=== PATIENT | female | born 1935 | race Two or more races ===

== ENCOUNTER → 2017-10-29 | Outpatient (CLI) | payer MEDICARE ==
[~2017-10-29] MED LIST: IBUP200C3 OR; IBUP600T39; PHENELX16; VALS160T53; VALS80TA42 OR
[2017-10-29 10:48] LABS: Basophils # (auto) 0.1 uL; Basophils % (auto) 0.8 % (0.0-2.0); Eosinophils # (auto) 0.2 uL; Eosinophils % (auto) 3.2 % (0.0-7.0); Hematocrit 40.2 % (36.0-46.0); Hemoglobin 13.6 g/dL (12.2-16.2); Lymphocytes # (auto) 2.6 uL; Lymphocytes % (auto) 39.1 % (10.0-50.0); Mean Corpuscular Hemoglobin 32.6 pg (28.0-32.0); Mean Corpuscular Hgb Conc. 33.8 g/dL (32.0-36.0); Mean Corpuscular Volume 96.6 fL (80.0-100.0); Monocytes # (auto) 0.7 uL; Monocytes % (auto) 10.8 % (0.0-12.0); Neutrophils # (auto) 3.1 uL; Neutrophils % (auto) 46.1 % (37.0-80.0); Platelet Count (auto) 226 10^3/uL (140-450); Red Blood Cells 4.16 10^6/uL (4.0-5.20); Red Cell Distribution Width 14.1 % (11.8-14.3); White Blood Cell 6.7 10^3/uL (4.4-10.8)
[2017-10-29 11:41] LABS: BUN/Creatinine Ratio 20.7; Bilirubin, Total 0.6 mg/dL (0.2-1.0); Calcium 8.7 mg/dL (8.5-10.1); Magnesium 2.2 mg/dL (1.6-2.6); Potassium 3.8 mmol/L (3.5-5.1); Total Protein 7.8 g/dL (6.4-8.2)
== END | disposition home or self-care (01) ==
LOC: LAB 10:33
DX: E11.9 Type 2 diabetes mellitus without complications (principal); E75.6 Lipid storage disorder, unspecified; E66.9 Obesity, unspecified; E55.9 Vitamin D deficiency, unspecified; I10 Essential (primary) hypertension
CPT/HCPCS: 36415; 80053; 80061; 82306; 82607; 82746; 83036; 83735; 85025

== ENCOUNTER 2023-05-14 10:53 | Emergency (ER) | payer OTHER, MEDICAID ==
[~2023-05-14] VITALS: Ht 142.2 cm; Wt 45.5 kg
[~2023-05-14 10:53] MED LIST changes: +VALS80TA4 OR; -VALS80TA42 OR
[2023-05-14 11:46] LABS: Basophils # (auto) 0.1 10 ^3/uL (0-0.2); Basophils % (auto) 0.8 % (0.0-2.0); Eosinophils # (auto) 0 10 ^3/uL (0-0.8); Eosinophils % (auto) 0.4 % (0.0-7.0); Lymphocytes % (auto) 21.7 % (10.0-50.0); Mean Corpuscular Hemoglobin 33.1 pg (28.0-32.0); Mean Corpuscular Hgb Conc. 34.2 g/dL (32.0-36.0); Mean Corpuscular Volume 96.7 fL (80.0-100.0); Monocytes # (auto) 0.9 10 ^3/uL (0-1.3); Monocytes % (auto) 10.2 % (0.0-12.0); Neutrophils # (auto) 6.1 10 ^3/uL (1.6-8.6); Neutrophils % (auto) 66.9 % (37.0-80.0); Red Blood Cells 3.93 10^6/uL (4.0-5.20); Red Cell Distribution Width 14.5 % (11.8-14.3); White Blood Cell 9.1 10^3/uL (4.4-10.8)
[2023-05-14 12:04] LABS: Alanine Aminotransferase 131 U/L (7-40); Albumin 4.1 g/dL (3.2-4.8); Alkaline Phosphatase 458 U/L (46-116); Anion Gap 9 (5-15); Aspartate Aminotransferase 230 U/L (13-40); BUN/Creatinine Ratio 16.1 (10.0-20.0); Blood Urea Nitrogen 9 mg/dL (9-23); Calcium 8.9 mg/dL (8.7-10.4); Carbon Dioxide 22 mmol/L (20-30); Chloride 104 mmol/L (98-107); Glucose 120 mg/dL (74-106); Lipase 32 U/L (12-53); Potassium 4.1 mmol/L (3.5-5.1); Sodium 135 mmol/L (136-145)
[2023-05-14 12:05] LABS: Bilirubin, Total 1.3 mg/dL (0.2-1.0); Total Protein 7.2 g/dL (5.7-8.2)
[2023-05-14] MEDS ORDERED: ASPirin 325 MG TAB PO ONE (13:15)
[2023-05-14] MEDS ORDERED: IOHEXOL 350 MG/ML 100ML IJ ONE (13:15)
[2023-05-14] MEDS ORDERED: PIPERACILLIN-TAZOB 3.375GM 100 ML IV ONE (16:00)
[2023-05-14] MEDS ORDERED: SODIUM CHLORIDE 0.9% 1,000 ML IV ONE (21:30)
[2023-05-14 21:45] VITALS: BP 150/86; PULSE 74; RESP 18; TEMP 98.3; O2SAT 98
== END 2023-05-14 21:55 | disposition short-term general hospital (02) ==
LOC: EDBD 10:53 → ER 10:53
DX: R10.13 Epigastric pain (principal); R42 Dizziness and giddiness; R79.89 Other specified abnormal findings of blood chemistry; K80.50 Calculus of bile duct without cholangitis or cholecystitis without obstruction; R79.1 Abnormal coagulation profile; R55 Syncope and collapse; K80.70 Calculus of gallbladder and bile duct without cholecystitis without obstruction
CPT/HCPCS: 36415; 71045; 71275; 74176; 74181; 76705; 80053; 83605; 83690; 83735; 83880; 84484; 85025; 85379; 93005; 96365; 96366; 99291; J2543; Q9967

== ENCOUNTER 2023-09-17 15:35 | Emergency (ER) | payer OTHER, MEDICAID ==
[~2023-09-17] VITALS: Ht 142.2 cm; Wt 50.0 kg
[2023-09-17 19:46] VITALS: BP 140/71; PULSE 76; RESP 12; TEMP 98; O2SAT 98
[2023-09-17] MEDS ORDERED: IBUP-1454 PO (21:31)
[2023-09-17] MEDS ORDERED: HYDR-4902 PO (21:31)
== END 2023-09-17 21:48 | disposition home or self-care (01) ==
LOC: ER 15:35
DX: S32.591A Other specified fracture of right pubis, initial encounter for closed fracture (principal); S32.511A Fracture of superior rim of right pubis, initial encounter for closed fracture; I10 Essential (primary) hypertension; E11.9 Type 2 diabetes mellitus without complications; W18.09XA Striking against other object with subsequent fall, initial encounter; Y93.89 Activity, other specified; Y92.89 Other specified places as the place of occurrence of the external cause; Y99.8 Other external cause status
CPT/HCPCS: 72170; 72192

== ENCOUNTER 2023-12-19 15:48 | Inpatient (IN) | payer OTHER, MEDICAID ==
[~2023-12-19] VITALS: Ht 160 cm; Wt 98.6 kg
[~2023-12-19 15:48] MED LIST changes: +HYDR-4902 PO; +IBUP-1454 PO
[2023-12-19 16:25] VITALS: RESP 14; O2SAT 94
[2023-12-19] MEDS: ONDANSETRON HCL 4 MG/2 ML VIAL IV ONE (16:33)
[2023-12-19] MEDS: MORPHINE SULFATE 4 MG/ML SYR/VIAL IV ONE (16:34)
[2023-12-19 16:45] LABS: Basophils # (auto) 0 10 ^3/uL (0-0.2); Basophils % (auto) 0.5 % (0.0-2.0); Eosinophils # (auto) 0.2 10 ^3/uL (0-0.8); Eosinophils % (auto) 1.4 % (0.0-7.0); Hematocrit 37.2 % (36.0-46.0); Hemoglobin 12.5 g/dL (12.2-16.2); Lymphocytes # (auto) 1.9 10 ^3/uL (0.4-5.4); Lymphocytes % (auto) 17.8 % (10.0-50.0); Mean Corpuscular Hemoglobin 31.4 pg (28.0-32.0); Mean Corpuscular Hgb Conc. 33.7 g/dL (32.0-36.0); Mean Corpuscular Volume 93.2 fL (80.0-100.0); Monocytes # (auto) 1.1 10 ^3/uL (0-1.3); Monocytes % (auto) 10.3 % (0.0-12.0); Neutrophils # (auto) 7.5 10 ^3/uL (1.6-8.6); Platelet Count (auto) 355 10^3/uL (140-450); Red Blood Cells 3.99 10^6/uL (4.0-5.20); Red Cell Distribution Width 14.8 % (11.8-14.3); White Blood Cell 10.7 10^3/uL (4.4-10.8)
[2023-12-19 17:04] LABS: INR 1.15 (0.9-1.15); Prothrombin Time 12.1 sec (9.3-11.8)
[2023-12-19 17:05] LABS: Chloride 104 mmol/L (98-107); Potassium 3.8 mmol/L (3.5-5.1); Sodium 134 mmol/L (136-145)
[2023-12-19 17:06] LABS: Anion Gap 7 (5-15); Calcium 8.9 mg/dL (8.7-10.4); Carbon Dioxide 23 mmol/L (20-30)
[2023-12-19 17:11] LABS: BUN/Creatinine Ratio 17.7 (10.0-20.0); Blood Urea Nitrogen 11 mg/dL (9-23); Glucose 124 mg/dL (74-106)
[2023-12-19 19:30] VITALS: PULSE 80; RESP 18; O2SAT 95
[2023-12-19] MEDS ORDERED: ONDANSETRON HCL 4 MG/2 ML VIAL IV PRN (21:15)
[2023-12-19] MEDS ORDERED: DEXTROSE (50%) 50ML SYRG IV PRN (21:15)
[2023-12-19] MEDS ORDERED: ACETAMINOPHEN 325 MG TAB PO PRN (21:15)
[2023-12-19] MEDS: SODIUM CHLORIDE 0.9% 1,000 ML IV SCH (21:15)
[2023-12-19] MEDS: InsuLIN REG 1unit/0.01ml Soln (100units/ml) SC SCH (22:00)
[2023-12-19] MEDS: ACCU-CHEK COMFORT CURVE STRIP VI SCH (22:20)
[2023-12-19] MEDS ORDERED: MORPHINE SULFATE INJ 2 MG/ml SYRG IV PRN (23:00)
[2023-12-19] MEDS ORDERED: NITROGLYCERIN 0.4 MG SL TAB SL PRN (23:00)
[2023-12-20] VITALS (7 sets, daily range): BP systolic 118–131; BP diastolic 55–74; PULSE 68–85; RESP 14–20; TEMP 97.7–98.2; O2SAT 93–96
[2023-12-20] MEDS: MORPHINE SULFATE INJ 2 MG/ml SYRG IV PRN (03:15)
[2023-12-20 06:28] LABS: Basophils # (auto) 0 10 ^3/uL (0-0.2); Basophils % (auto) 0.2 % (0.0-2.0); Eosinophils # (auto) 0.1 10 ^3/uL (0-0.8); Eosinophils % (auto) 0.7 % (0.0-7.0); Hematocrit 34.5 % (36.0-46.0); Hemoglobin 11.8 g/dL (12.2-16.2); Lymphocytes # (auto) 1.4 10 ^3/uL (0.4-5.4); Mean Corpuscular Hemoglobin 31.8 pg (28.0-32.0); Mean Corpuscular Hgb Conc. 34.2 g/dL (32.0-36.0); Mean Corpuscular Volume 93.1 fL (80.0-100.0); Monocytes % (auto) 10.3 % (0.0-12.0); Neutrophils # (auto) 6.9 10 ^3/uL (1.6-8.6); Neutrophils % (auto) 73.8 % (37.0-80.0); Platelet Count (auto) 324 10^3/uL (140-450); Red Blood Cells 3.71 10^6/uL (4.0-5.20); Red Cell Distribution Width 14.8 % (11.8-14.3); White Blood Cell 9.3 10^3/uL (4.4-10.8)
[2023-12-20 07:04] LABS: Alanine Aminotransferase 11 U/L (7-40); Albumin 3.6 g/dL (3.2-4.8); Alkaline Phosphatase 259 U/L (46-116); Anion Gap 4 (5-15); Aspartate Aminotransferase 14 U/L (13-40); BUN/Creatinine Ratio 17.8 (10.0-20.0); Blood Urea Nitrogen 8 mg/dL (9-23); Calcium 8.9 mg/dL (8.7-10.4); Carbon Dioxide 27 mmol/L (20-30); Chloride 105 mmol/L (98-107); Glucose 106 mg/dL (74-106); Potassium 4.3 mmol/L (3.5-5.1); Sodium 136 mmol/L (136-145)
[2023-12-20 07:05] LABS: Bilirubin, Total 0.7 mg/dL (0.2-1.0); Total Protein 6.5 g/dL (5.7-8.2)
[2023-12-20] MEDS: cefTRIAXone 1GM/50ML D5W 50 ML IV SCH (08:52)
[2023-12-20] MEDS: ENOXAPARIN SOD 30 MG/0.3 ML SYRINGE SC SCH (08:57)
[2023-12-20 18:35] LABS: Urine Bacteria None Seen /hpf (None Seen)
[2023-12-20 19:03] LABS: Urine Blood Negative /uL (Negative); Urine Clarity Clear (Clear); Urine Color Light-Yellow (Yellow); Urine Mucus FEW (None Seen); Urine Protein, UAD Negative (Negative); Urine Specific Gravity 1.014 (1.001-1.035); Urine Urobilinogen Normal (Negative); Urine WBC 1 /hpf (0 - 5); Urine pH 6.5 (5.0-9.0)
[2023-12-21] VITALS (16 sets, daily range): BP systolic 94–129; BP diastolic 55–85; PULSE 62–96; RESP 16–20; TEMP 98–98.5; O2SAT 93–99
[2023-12-21] MEDS: HYDROcodone-ACET 5/325MG TAB PO PRN (01:02)
[2023-12-21] MEDS ORDERED: fentaNYL CITRATE 100 MCG/2 ML VL ONE (13:16)
[2023-12-21] MEDS ORDERED: MORPHINE SULF PF 5 MG/10 ML VIAL ONE (13:16)
[2023-12-21] MEDS ORDERED: MIDAZOLAM HCL 2MG/2ML 2ml VIAL (1mg/ml) ONE ×2 (13:16→14:01)
[2023-12-21] MEDS: MINERAL OIL TOPICAL 10ml TOP ONE (13:56)
[2023-12-21] MEDS ORDERED: ceFAZolin 1GM/50ML 50 ML IV SCH (14:00)
[2023-12-21] MEDS: BUPIVACAINE HCL 0.25% P/F 10 ML VIAL ONE (14:30)
[2023-12-21] MEDS ORDERED: HYDROmorphone HCL 2 MG/ML VL/or syr IV PRN (15:00)
[2023-12-21] MEDS: ONDANSETRON HCL 4 MG/2 ML VIAL IV ONE (15:00)
[2023-12-21] MEDS: ACCU-CHEK COMFORT CURVE STRIP VI ONE (15:00)
[2023-12-21] MEDS ORDERED: MIDAZOLAM HCL 2MG/2ML 2ml VIAL (1mg/ml) IV PRN (15:00)
[2023-12-21] MEDS ORDERED: ePHEDrine SULFATE 50 MG/ML AMP IV PRN (15:00)
[2023-12-21] MEDS ORDERED: MORPHINE SULFATE 4 MG/ML SYR/VIAL IV PRN (15:00)
[2023-12-21] MEDS: ceFAZolin 1GM/50ML 50 ML IV ONE (15:02)
[2023-12-21] MEDS: ceFAZolin 1GM/50ML 50 ML IV SCH (16:40)
[2023-12-22] VITALS (25 sets, daily range): BP systolic 96–145; BP diastolic 55–82; PULSE 60–100; RESP 16–20; TEMP 97.4–99.4; O2SAT 93–98
[2023-12-22] MEDS: ENOXAPARIN SOD 30 MG/0.3 ML SYRINGE SC SCH (10:00)
[2023-12-22 10:25] LABS: Chloride 106 mmol/L (98-107); Potassium 3.6 mmol/L (3.5-5.1); Sodium 135 mmol/L (136-145)
[2023-12-22 10:26] LABS: Anion Gap 5 (5-15); Calcium 8.6 mg/dL (8.7-10.4); Carbon Dioxide 24 mmol/L (20-30)
[2023-12-22 10:31] LABS: BUN/Creatinine Ratio 26.3 (10.0-20.0); Blood Urea Nitrogen 15 mg/dL (9-23); Glucose 169 mg/dL (74-106); Hematocrit 27.3 % (36.0-46.0); Hemoglobin 9.3 g/dL (12.2-16.2)
[2023-12-23] VITALS (7 sets, daily range): BP systolic 101–127; BP diastolic 54–77; PULSE 57–84; RESP 17–20; TEMP 97.5–98.6; O2SAT 97–98
[2023-12-23] MEDS: PANTOPRAZOLE 40 MG TAB PO ONE (12:00)
[2023-12-24] VITALS (7 sets, daily range): BP systolic 103–144; BP diastolic 58–65; PULSE 55–93; RESP 16–18; TEMP 97.9–98.6; O2SAT 96–98
[2023-12-25] VITALS (8 sets, daily range): BP systolic 121–160; BP diastolic 60–97; PULSE 67–100; RESP 17–78; TEMP 97.9–98.6; O2SAT 96–99
[2023-12-26] VITALS (7 sets, daily range): BP systolic 127–168; BP diastolic 35–70; PULSE 64–79; RESP 12–18; TEMP 97–98.6; O2SAT 96–98
[2023-12-26 06:37] LABS: Basophils # (auto) 0 10 ^3/uL (0-0.2); Basophils % (auto) 0.4 % (0.0-2.0); Eosinophils # (auto) 0.3 10 ^3/uL (0-0.8); Eosinophils % (auto) 3.9 % (0.0-7.0); Hematocrit 26.2 % (36.0-46.0); Hemoglobin 9.1 g/dL (12.2-16.2); Lymphocytes # (auto) 2.4 10 ^3/uL (0.4-5.4); Lymphocytes % (auto) 26.3 % (10.0-50.0); Mean Corpuscular Hemoglobin 32.4 pg (28.0-32.0); Mean Corpuscular Hgb Conc. 34.8 g/dL (32.0-36.0); Mean Corpuscular Volume 93.2 fL (80.0-100.0); Monocytes # (auto) 1.1 10 ^3/uL (0-1.3); Monocytes % (auto) 12.7 % (0.0-12.0); Neutrophils # (auto) 5.1 10 ^3/uL (1.6-8.6); Neutrophils % (auto) 56.7 % (37.0-80.0); Nucleated Red Blood Cells % 0.4 %; Platelet Count (auto) 292 10^3/uL (140-450); Red Cell Distribution Width 15.3 % (11.8-14.3)
[2023-12-26 06:58] LABS: Albumin 3.1 g/dL (3.2-4.8); Alkaline Phosphatase 145 U/L (46-116); Anion Gap 3 (5-15); Aspartate Aminotransferase 14 U/L (13-40); BUN/Creatinine Ratio 20.5 (10.0-20.0); Blood Urea Nitrogen 8 mg/dL (9-23); Calcium 8.4 mg/dL (8.7-10.4); Carbon Dioxide 29 mmol/L (20-30); Chloride 107 mmol/L (98-107); Glucose 100 mg/dL (74-106); Potassium 3.6 mmol/L (3.5-5.1); Sodium 139 mmol/L (136-145)
[2023-12-26 06:59] LABS: Total Protein 5.6 g/dL (5.7-8.2)
[2023-12-26 07:02] LABS: Alanine Aminotransferase < 9 U/L (7-40)
[2023-12-26] MEDS ORDERED: DOCU-265 PO ×2 (10:16)
[2023-12-26] MEDS: DOCUSATE SOD 100 MG CAP PO PRN (21:33)
[2023-12-27] VITALS (8 sets, daily range): BP systolic 118–133; BP diastolic 56–76; PULSE 66–81; RESP 13–19; TEMP 97.8–98.6; O2SAT 95–99
[2023-12-28 01:00] VITALS: BP 130/55; PULSE 69; RESP 20; TEMP 98.3; O2SAT 97
[2023-12-28 05:00] VITALS: BP 117/48; PULSE 65; RESP 20; TEMP 98.3; O2SAT 96
[2023-12-28 08:00] VITALS: PULSE 63
[2023-12-28 08:04] VITALS: PULSE 76; RESP 18; O2SAT 98
[2023-12-28 08:30] VITALS: BP 126/57; PULSE 64; RESP 20; TEMP 98; O2SAT 97
[2023-12-28 12:54] VITALS: BP 126/59; PULSE 64; RESP 20; TEMP 98; O2SAT 99
[2023-12-28] MEDS ORDERED: PHENYLEPHRINE HCL 10 MG/ML VL IV ONE (17:09)
[2023-12-28] MEDS ORDERED: PROPOFOL 10 MG/ML 20 ML IV ONE (17:09)
[2023-12-28] MEDS ORDERED: DexAMETHasone SOD PHOS 10MG/1ML VIAL INJ IV ONE (17:09)
== END 2023-12-28 17:10 | disposition left against medical advice (07) | DRG 481 ==
LOC: ER 15:48 → EDBD 15:48 → TELE 22:52 → TELE-CENTR 23:55
PROVIDERS: ADMIT Nurse Practitioner Family; ATTEND Internal Medicine Nephrology
PROC: 0QS704Z Reposition Left Upper Femur with Internal Fixation Device, Open Approach (ICD-10-PCS; principal; 2023-12-21 13:28)
DX: S72.142A Displaced intertrochanteric fracture of left femur, initial encounter for closed fracture (principal); Z68.1 Body mass index [BMI] 19.9 or less, adult; I10 Essential (primary) hypertension; D64.9 Anemia, unspecified; E11.65 Type 2 diabetes mellitus with hyperglycemia; Z53.29 Procedure and treatment not carried out because of patient's decision for other reasons; W01.0XXA Fall on same level from slipping, tripping and stumbling without subsequent striking against object, initial encounter; Y92.009 Unspecified place in unspecified non-institutional (private) residence as the place of occurrence of the external cause; Z90.49 Acquired absence of other specified parts of digestive tract; Y93.89 Activity, other specified; Y99.8 Other external cause status; Z79.84 Long term (current) use of oral hypoglycemic drugs
CPT/HCPCS: 36415; 71045; 73501; 73502; 76000; 80048; 80053; 81001; 82962; 83036; 83880; 85014; 85018; 85025; 85610; 86850; 86900; 86901; 93005; 93306; 97110; 97116; 97163; 97530; A4565; G0378; J1100; J1815; J2250; J2405; J2704; J3490

== ENCOUNTER 2024-01-22 14:21 | Emergency (ER) | payer OTHER, MEDICAID ==
[~2024-01-22] VITALS: Ht 261.6 cm; Wt 45.0 kg
[~2024-01-22 14:21] MED LIST changes: +DOCU-265 PO
[2024-01-22 15:12] VITALS: BP 134/68; PULSE 78; RESP 18; TEMP 98.7; O2SAT 98
== END 2024-01-22 15:21 | disposition home or self-care (01) ==
LOC: ER 14:21
DX: T81.89XD Other complications of procedures, not elsewhere classified, subsequent encounter (principal); I10 Essential (primary) hypertension; E11.9 Type 2 diabetes mellitus without complications; Z48.02 Encounter for removal of sutures; Z98.890 Other specified postprocedural states; Z79.899 Other long term (current) drug therapy; Y92.89 Other specified places as the place of occurrence of the external cause